=== PATIENT | female | born 1990 | race Caucasian/White ===

== ENCOUNTER 2021-06-11 16:15 | Emergency (ER) | payer MEDICAID, SELFPAY ==
[2021-06-11 16:41] VITALS: BP 130/72; PULSE 88; RESP 18; TEMP 36.7; O2SAT 98; BMI 21.2
--- NOTE | 2021-06-11 17:58 | ED_ITS ---
HPI - Wound/Laceration General Chief Complaint: Wound/Laceration Stated Complaint: Finger lac Time Seen by Provider: 06/11/21 17:57 Source: patient Mode of arrival: ambulatory Limitations: no limitations History of Present Illness HPI narrative: 30 y/o female presenting to the ER for evaluation of a laceration on her right index finger she sustained just prior to arrival accidentally on a can of tuna. She was able to control the bleeding with a bandage and direct pressure. She is able to fully extend and flex the finger. No weakness or numbness. 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 Onset (ago): minute(s) Place: home Patient tetanus UTD: No Context: accidental Associated symptoms: pain Treatments prior to arrival: bandage Related Data Allergies Allergy/AdvReac Type Severity Reaction Status Date / Time Unable to Assess Allergy Unverified 06/11/21 17:57 Review of Systems Review of Systems: Constitutional: No Fever, No Chills Cardiovascular: No Chest Pain, No SOB Gastrointestinal: No Nausea, No Vomiting Musculoskeletal: + joint pain, No Myalgias Skin: + Skin Lesions, No rash Neuro: No Weakness, No Numbness Psych: + Anxiety/Panic Heme/Lymph: No Bruising Physical Exam Vital Signs: Vital Signs: Last Vital Signs Temp 98.0 F 06/11/21 16:41 Pulse 88 06/11/21 16:41 Resp 18 06/11/21 16:41 BP 130/72 06/11/21 16:41 Pulse Ox 98 06/11/21 16:41 BMI result Body Mass Index 21.2 Appearance: Alert. Oriented X3. No acute distress. HEENT: normal inspection CVS: Normal heart rate and rhythm. Pulses normal. Respiratory: No respiratory distress. Skin: Skin warm and dry. Normal skin color. Normal skin turgor. No rashes. Extremities: dorsal right index finger with 2cm linear laceration distal to the PIP aspect of the finger. active oozing. no nail involvement. normal ROM of the digit. cap refill <3 sec, no FB Neuro: Oriented X 3. No motor deficit. No sensory deficit. Course Course Course Narrative: 30-year-old female presenting to the ER with a 2 cm laceration on the dorsal aspect of her right index finger. Active oozing on arrival. Direct pressure was able to control the bleeding. Does not appear to have any tendon or bone involvement. She has normal range of motion. Amenable to suturing. Tdap ordered. Reevaluation(s) Reevaluation #1: Wound was cleaned and irrigated extensively. Four sutures were used to close the wound after anesthetized with local 2% lidocaine. Patient tolerated procedure well. Antibiotic ointment and dry sterile dressing were applied. Wound care discussed with patient. Stable for discharge home. Procedures Laceration Laceration 1: Site: hand Side (If applicable): right Size (cm): 2 Description: linear Depth: simple, single layer Local Anesthetic: lidocaine 2% Amount of anesthesia used (mL): 1 Pre-repair: wound explored, irrigated extensively and deep structures intact Skin layer closed with: nylon Size (cm): 5-0 Number of sutures: 4 Technique: simple, interrupted Critical Care Time Critical Care Time Critical Care Time: No Discharge Plan Discharge Clinical Impression: Finger laceration Patient Disposition: Home, Self-Care Instructions: Finger Laceration (ED) Additional Instructions: 4 sutures were used to close your wound and you were given a tetanus shot today in the ER. You will need your stitches out in 7 days. See you doctor for this or come back to the ER and we will remove them. Do not get wet for 24 hours, after that you can briefly wash with soap and water then pat dry. Use bacitracin 2x per day. Keep wound clean and covered. Do not submerge in water,, no swimming. If you develop signs of infection including increased pain, swelling, redness or drainage of pus come back to the ER for further evaluation.
[2021-06-11] MEDS: Diphth,Pertus(ACell),Tet Adult 0.5 ML SYRINGE IM (18:50)
[2021-06-11] MEDS: Lidocaine HCl 2 % MPF 5 ML VIAL INFILTRATI (18:50)
== END 2021-06-11 19:24 | disposition home or self-care (01) ==
PROVIDERS: Emergency Provider Internal Medicine; PCP Internal Medicine
DX: S61.210A Laceration without foreign body of right index finger without damage to nail, initial encounter (principal); S60.511A Abrasion of right hand, initial encounter; W26.8XXA Contact with other sharp object(s), not elsewhere classified, initial encounter; Y93.9 Activity, unspecified; Y92.000 Kitchen of unspecified non-institutional (private) residence as the place of occurrence of the external cause; Y99.9 Unspecified external cause status
CPT/HCPCS: 12001; 90471; 90715; 99282; 99284

== ENCOUNTER 2023-05-03 08:56 | Outpatient (AMB) | payer OTHER, SELFPAY ==
--- NOTE | 2023-05-03 08:57 | A.OFFPC_ITS ---
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: No Accompanied by: Self / Same As Patient Allergies cefixime [From Suprax] Allergy (Verified 05/03/23 09:10) Hives codeine Adverse Reaction (Verified 05/03/23 09:10) Unconscious Medication List - Last Reconciled 05/03/23 by Jewell Pierre MD No Known Home Meds Tobacco use date assessed: 05/03/23 Dental Screening Dental Screen Date: 05/03/23 Did you have a dental visit in the last 12 months?: Yes Did you have a dental problem in the last 6 months where you did not have access to dental care?: No Was dental information given to patient?: Patient has dentist HPI HPI Comments History of Present Illness Details This is a 32-year-old female that comes for her physical exam. Last Pap smear was November 2022 and was abnormal and this is follow by OBGYN. No chest pain or shortness of breath. Has left submandibular lymphadenopathy that as per patient has been on and off for about a year. Denies any fever, night sweats or weight loss. Has some minimal depression, anxiety and PTSD that is follow by counseling and well controlled with meditation. [facility] Surgical History No pertinent past surgical history Family History Mother Costochondritis Father No problems noted. Social History Housing: House Alcohol intake: current Alcohol intake frequency: holidays/special occasions only Alcohol type: beer and wine Patient Tobacco Use Status: Never used Tobacco e-Cigarette/Vaping Use: Never Used Second Hand Smoke Exposure: No service: No Current occupational status: employed Current occupational exposures/hazards: No Cognitive needs: No Hearing needs: No Vision needs: No Questionnaire PHQ-9 Over the last 2 weeks, how often have you been bothered by any of the following problems? 1. Little interest or pleasure in doing things: not at all 2. Feeling down, depressed, or hopeless: several days 3. Trouble falling or staying asleep, or sleeping too much: not at all 4. Feeling tired or having little energy: several days 5. Poor appetite or overeating: several days 6. Feeling bad about yourself - or that you are a failure or have let yourself or your family down: not at all 7. Trouble concentrating on things, such as reading the newspaper or watching television: not at all 8. Moving or speaking so slowly that other people could have noticed. Or the opposite - being so fidgety or restless that you have been moving around a lot more than usual: not at all 9. Thoughts that you would be better off or of hurting yourself in some way: not at all Total score: 3 Depression Screening Interpretation: Positive Depression Screening Follow-up: Existing condition and Community Mental Health Worker F/U Depression Screening Done: Yes 02568 - PHQ-9 Billing: Yes Source: Developed by Drs. Adi Sandoval, Urmila Harley, Jack Garcia and colleagues, with an educational timothy from [employer]. Thrive Questionnaire Date Thrive assessed: 05/03/23 I am a: Patient What is your living situation today?: I have a steady place to live Within the past 12 months, did the food you bought not last and you didn't have the money to get more?: Never true Within the past 12 months, did you worry whether your food would run out before you got money to buy more?: Never true Do you have trouble paying for medicines?: No Do you have trouble getting transportation to medical appointments?: No Do you have trouble paying your heating and electricity bill?: No Do you have trouble taking care of your child, family member or friend?: No Do you have trouble with day-to-day activities such as bathing, preparing meals, shopping, managing finances, etc.?: No Are you currently unemployed and looking for a job?: No Are you interested in more education?: No Please select the resources that you would like help with: None Currently or been in a relationship where the following occur: no concerns reported AUDIT C Alcohol Use Questionnaire (AUDIT-C) 1. How often do you have a drink containing alcohol?: Monthly or less 2. How many drinks containing alcohol do you have on a typical day when you are drinking?: 1 or 2 3. How often do you have six or more drinks on one occasion?: Never Total Score: 1 Score Reviewed/Action Taken: No VAUGHN-7 AMB Questionnaire VAUGHN-7 Date VAUGHN - 7 assessed: 05/03/23 Feeling nervous, anxious, or on edge: 1 = Several days Not being able to stop or control worryin = Not at all Worrying too much about different things: 1 = Several days Trouble relaxin = Several days Being so restless that it is hard to sit still: 0 = Not at all Becoming easily annoyed or irritable: 0 = Not at all Feeling afraid as if something awful might happen: 1 = Several days Total VAUGHN-7 score (0-4 normal; 5-9 mild; 10-14 moderate; 15-21 severe): 4 Source: Developed by Drs. Adi Sandoval, Urmila Harley, Jack Garcia and colleagues, with an educational timothy from [employer]. VAUGHN-7 Assessment Billing VAUGHN-7 Assessment Tool: VAUGHN-7 Assessment 78532 Review of Systems Const All systems reviewed & are unremarkable except as noted in HPI and below Eyes Reports no additional complaints, Denies change in vision and Denies other visual disturbances Card Denies chest pain at rest, Denies chest pain with activity, Denies edema, Denies irregular heart rhythm, Denies claudication, Denies dyspnea, Denies dyspnea on exertion, Denies orthopnea, Denies paroxysmal nocturnal dyspnea and Denies slow heart rate Resp Denies cough, Denies dyspnea and Denies dyspnea on exertion GI Denies abdominal pain, Denies change in bowel habits, Denies excessive flatus, Denies nausea and Denies vomiting Denies urinary incontinence, Denies urinary hesitancy and Denies urinary urgency Musc Denies abnormal gait, Denies atrophy, Denies deformity and Denies limited range of motion Skin/Breast Denies bleeding lesions, Denies changing lesions and Denies rash Neuro Denies abnormal gait, Denies behavioral changes, Denies confusion and Denies lack of coordination Psych Denies behavioral changes and Denies confusion Simeon/Lymph Reports lymphadenopathy Physical exam (Primary Care) Vital Signs: Last Vital Signs BP 120/80 05/03/23 08:59 BMI result Body Mass Index 22.5 Tobacco/Smoking Status: Tobacco use Status Tobacco use date assessed 05/03/23 05/03/23 09:07 Patient Tobacco Use Status Never used Tobacco 05/03/23 09:07 e-Cigarette/Vaping Use Never Used 05/03/23 09:07 PHQ-9: PHQ-9 Score PHQ-9: Total score 3 05/03/23 09:09 Depression Screening Interpretation: Positive Depression Screening Follow-up: Existing condition and Community Mental Health Worker F/U Thrive Assessment: Date of Thrive Assessment Date Thrive assessed 05/03/23 05/03/23 09:07 Currently or been in a relationship where the following occur: no concerns reported Const General: No confusion Orientation/consciousness: patient oriented x3 and No confusion HENMT Head: Yes normal to inspection, Yes normocephalic and Yes atraumatic Ears: external ears normal Eyes General: appearance normal, both eyes and all related structures Eyelids: Yes eyelids normal Conjunctivae: conjunctivae normal Neck Neck: Yes normal visual inspection and Yes supple Lymphatic: lymphadenopathy (submandibular left side) Resp Effort & Inspection: normal respiratory effort Auscultation: clear to auscultation bilaterally Cardio Jugular venous distension: no JVD Rate: regular rate Rhythm: regular rhythm Heart sounds: S1 normal heart sound present and S2 normal heart sound present GI Inspection: Yes normal to inspection Palpation (GI): Soft to palpation and nontender Auscultation: normal bowel sounds Skin General skin exam: no rashes or lesions noted Neuro General: patient oriented x3, no focal motor deficits and No confusion Extrem General: Yes full ROM Psych Appearance: grossly normal Office Procedures Flu Questionnaire Does the patient have a severe egg allergy?: No Immunizations flu vacc [id number] 6mos up(PF) 60 mcg(15 mcgx4)/0.5 mL IM syringe Performing Provider: Jewell Pierre MD [facility] Documented (not given) by: KENDAL Cheng on 05/03/23 09:10 Reason Not Given: Patient Refused Assessment and Plan Assessment & Plan (1) Physical exam: Code(s): Z00.00 - Encounter for general adult medical examination without abnormal findings Plan: Repeat in a year. Orders: Orders Lipid Panel Today Z00.00 - Encounter for general adult medical examination without abnormal findings US soft tiss head and/or neck Today R59.0 - Localized enlarged lymph nodes Influenza [id number] Immunization Today Z23 - Encounter for immunization Comprehensive [place]. Panel Fast Today Z00.00 - Encounter for general adult medical examination without abnormal findings Complete Blood Count Auto Diff Today R59.0 - Localized enlarged lymph nodes Coding Level of Care Code New Pt Prev Care 18-39yr([id number] Diagnoses Physical exam Z00.00 Additional Codes VAUGHN-7 Assessment Billing - VAUGHN-7 Assessment Tool: VAUGHN-7 Assessment 22519 ([id number]) Time Spent (min) 31
[2023-05-03 08:59] VITALS: BP 120/80; BMI 22.5
== END 2023-05-03 09:25 | disposition home or self-care (01) ==
PROVIDERS: PCP Internal Medicine; Visit Provider Internal Medicine
DX: Z00.00 Encounter for general adult medical examination without abnormal findings (principal)
CPT/HCPCS: 99385

== ENCOUNTER 2023-05-29 13:36 | Outpatient (REF) | payer OTHER, SELFPAY ==
--- NOTE | ~2023-05-29 | US_ITS ---
EXAMINATION: US SOFT TISSUE NECK CLINICAL INFORMATION: Localized enlarged lymph nodes, submandibular COMPARISON: None available. TECHNIQUE: Ultrasound of the neck soft tissues is performed with high- frequency valenzuela-scale imaging and color Doppler. FINDINGS: LEFT NECK SOFT TISSUES: Ultrasound in the area of concern indicated by the patient in the left neck, demonstrates a 1.6 x 0.6 x 1.1 cm lymph node and a 1.8 x 0.6 x 0.9 cm lymph node with normal marie architecture.The nodes show normal fatty hilus, normal cortical thickness, and no cystic change or calcification. No abnormal color flow. US/US soft tiss head and/or neck IMPRESSION: Ultrasound of the area of concern indicated by the patient in the left neck demonstrates 2 enlarged benign-appearing lymph nodes. These may be reactive in nature.
== END 2023-05-29 13:37 | disposition home or self-care (01) ==
LOC: HO.US 13:36
PROVIDERS: PCP Internal Medicine; Visit Provider Internal Medicine
DX: R59.0 Localized enlarged lymph nodes (principal)
CPT/HCPCS: 76536